=== PATIENT | female | born 1955 | race Caucasian/White ===

== ENCOUNTER → 2018-02-05 08:50 | Outpatient (CLI) | payer BC | END | disposition home or self-care (01) | LOC: D.RAD 08:50 | DX: M25.511 Pain in right shoulder (principal) ==

== ENCOUNTER 2018-03-07 07:20 | Day surgery (SDC) | payer BC ==
[2018-03-05 11:35] LABS: HEMATOCRIT 41.7 % (36.0-48.0); MCH 31.6 pg (26.0-34.0); MCHC 33.6 g/dL (31.0-37.0); MCV 94.1 fL (80.0-100.0); MEAN PLATELET VOLUME 10.7 fL (7.4-10.4); RBC 4.43 10x6/uL (4.00-5.40); RDW 12.3 % (11.5-14.5); WBC 7.2 10x3/uL (4.8-10.8)
[~2018-03-07] VITALS: Ht 165.1 cm; Wt 62.6 kg
--- NOTE | ~2018-03-07 | OP ---
PATIENT NAME: ISA LADD MEDICAL RECORD: [id number] :57 LOCATION:[facility] ADMISSION DATE: SURGEON: BLAS GRAHAM DO DATE OF OPERATION: 03/07/2018 PROCEDURE PERFORMED: Right shoulder arthroscopy with biceps tenodesis, rotator cuff repair, labral debridement, subacromial decompression, distal clavicle excision. PREOPERATIVE DIAGNOSES: Right shoulder rotator cuff tear, SLAP tear, AC joint arthritis, and subacromial impingement POSTOPERATIVE DIAGNOSES: Right shoulder rotator cuff tear, SLAP tear, AC joint arthritis, and subacromial impingement. INDICATIONS: Ms. Isa Ladd is a 62-year-old female who presented to my office with right shoulder pain. I injected to no avail. She wanted an MRI. We got an MRI with arthrogram. She had a positive David's and pain with empty can testing. Her MRI showed a SLAP tear as well as a partial thickness rotator cuff tear. I informed her we would use a patch to the partial thickness that was greater than 50%. We would take it down, repair, and then put a patch on top of that, the Regeneten patch. I informed of the risks including infection, bleeding, damage to nerve and vessels, need for further surgery. She is okay with that risk. I also informed her to do a biceps tenodesis at that time and a subacromial decompression and AC joint, I would take up the distal clavicle to open it up. She was okay with all of that, she was tired of dealing with the pain. I asked her if it was affecting her activities of daily living, she said indeed it was. She did not want to wait any longer. She said it had been affecting her for quite some time and she signed the consent. SURGEON: Blas Graham DO DESCRIPTION OF THE PROCEDURE: The patient was given a block by anesthesia in the preoperative area and taken to the operative suite, laid in the left lateral decubitus position with the right shoulder prepped and draped. She was given 900 mg of clindamycin preoperatively. Timeout was performed, everyone was in agreement of the correct side, site, patient and procedure. The procedure then began with insufflating the capsule with 60 mL of normal saline through the posterior portal. Posterior portal was then established with an 11-blade scalpel and then a trocar was entered in the shoulder joint. Once the camera was entered in, a SLAP tear was noted right away as well as the rotator cuff tear, it was greater than 50% on the articular side, which was noted and the anterior portal was then established with an 18-gauge spinal needle and 11-blade scalpel. A burner was brought in and the bicep tenotomy was done at that time as well as labral debridement. The subscapularis tendon was also inspected and had a small fraying, which was debrided and appeared to be not full-thickness tear of the subscapularis. The cartilage looked good. No chondromalacia was noted and there were no loose bodies in the inferior pouch. Then went to the subacromial space and there was quite a bit of inflammation there. The lateral portal was established with an 18-gauge spinal needle and then a burner was brought in and cleaned up the space. There was a type 2 acromion noted on the distal acromion. This was removed with a shaver and then the AC joint was then addressed. The shaver was brought in through the anterior portal and took off the distal end of the clavicle opening up the AC joint, approximately 7 mm. After this was done, more debridement of the subacromial space was done as it OPERATIVE REPORT [id number] ISA LADD was quite inflamed with a shaver. The rotator cuff was cleaned off and there was a tear on the bursal side as well, noting a full thickness tear. A spinal needle was then brought in to valentin it. Once this was marked, we opened the shoulder with the lateral pole of extending it was a 15 blade scalpel. Careful dissection was then made down to the rotator cuff tear. The bursa was removed and the tear was noted. Anchors were then placed for the medial row, 2 anchors approximately a cm apart. We used a scorpion needle to bite through the tendon with the SpeedBridge sutures and the 2 freer ends were tied down on the anterior and posterior and then the 2 FiberTapes were used, one across over on each, one anterior, one posterior and then a lateral row. One anterior and one posterior was placed over the anchors. Once the anchors were in place, the rotator cuff had a nice repair. The Regeneten graft was brought in and put over the tear and I stapled medially and then the deploying device was removed and then 2 bone brad were placed into the patch laterally. After this was completed, the site was thoroughly irrigated and then attention was drawn to the biceps tenodesis site. The incision was made on the anterior humerus. Careful dissection was made down to the where the bicep was between the pec and deltoid junction and removed through the incision. It was whipstitched and then placed into the anterior humerus through a unicortical hole using a button, it was cinched down and then tied and then a free needle was used with an extra suture through the tendon. This was tied down. Excess tendon and excess suture were then removed with scissors. The site was then irrigated as well as the other open rotator cuff site and this site was closed with 2-0 Vicryl in inverted interrupted fashion, 4-0 Monocryl ran on the skin. The rotator cuff site was closed with 2-0 Vicryl closing the deltoid fascia in a [id number] fashion and then 2-0 Vicryl and the skin in an inverted interrupted fashion, 4-0 Monocryl was then ran on the skin on that side and then 4-0 Monocryl was used in inverted interrupted fashion to close the anterior and posterior portals. Dermabond glue was placed on each of the sites. Telfa and Tegaderm were then placed on them and ABD was then placed on it. The patient was awakened and taken to recovery in stable condition. Blood loss was minimal. COMPLICATIONS: None. TRANSINT:[id number] Voice Confirmation ID: [id number] DOCUMENT ID: [id number] BLAS GRAHAM DO at 1553 CC: [id number] DICTATION DATE: 03/07/18 1201 WARP KNITTING MACHINE OPERATOR: 03/07/18 1527 [facility] 03/07/18 [place] [id number] [place] [id number]
[~2018-03-07 07:20] MED LIST: CIMETIDINE200 MG PO; PEPCID AC20 MG PO; TUMERIC PO
[2018-03-07 07:40] VITALS: BP 107/68; Ht 165.1 cm; Wt 62.6 kg
[2018-03-07] MEDS ORDERED: OXYCODONE-APAP1 T10 PO (11:46)
[2018-03-07] MEDS ORDERED: VISTARIL50 MG PO (11:47)
== END 2018-03-07 13:30 | disposition home or self-care (01) ==
LOC: D.OPS 07:20 → D.PAN 10:00 → D.OPS 10:00
PROVIDERS: Anesthesiology
DX: M75.41 Impingement syndrome of right shoulder (principal); M75.111 Incomplete rotator cuff tear or rupture of right shoulder, not specified as traumatic; S43.431A Superior glenoid labrum lesion of right shoulder, initial encounter; M13.811 Other specified arthritis, right shoulder; Z01.812 Encounter for preprocedural laboratory examination

== ENCOUNTER → 2020-05-29 08:02 | Outpatient (CLI) | payer BC ==
[2018-03-07 07:40] VITALS: BMI 23.0
[~2020-05-29 08:02] MED LIST changes: +OXYCODONE-APAP1 T10 PO; +VISTARIL50 MG PO
== END | disposition home or self-care (01) ==
LOC: D.MRI 08:02
PROVIDERS: ATTEND Nurse Practitioner Family
DX: M67.432 Ganglion, left wrist (principal)

== ENCOUNTER 2020-06-16 05:45 | Day surgery (SDC) | payer BC ==
[~2020-06-16] VITALS: Ht 162.6 cm; Wt 63.5 kg
[2020-06-16 06:12] LABS: HEMATOCRIT 42.6 % (36.0-48.0); HEMOGLOBIN 14.3 g/dL (12-16); MCH 31.5 pg (26.0-34.0); MCHC 33.6 g/dL (31.0-37.0); MCV 93.8 fL (80.0-100.0); MEAN PLATELET VOLUME 10.8 fL (7.4-10.4); RBC 4.54 10x6/uL (4.00-5.40); RDW 12.6 % (11.5-14.5); WBC 5.8 10x3/uL (4.8-10.8)
[2020-06-16 06:28] VITALS: BP 170/83; Ht 162.6 cm; Wt 63.5 kg
[2020-06-16 06:37] LABS: SARS-CoV-2 ANTIGEN NEGATIVE- SARS-COV-2 (NEGATIVE)
[2020-06-16] MEDS ORDERED: HYDROCODON-ACE1 EAC7 PO (06:59)
--- NOTE | 2020-06-16 08:21 | NUR ---
0810 ICE CAP TO LEFT HAND. 0815 COFFEE WITH CREAM SERVED.
--- NOTE | 2020-06-16 14:20 | OP ---
PATIENT NAME: ISA LADD MEDICAL RECORD: [id number] :57 LOCATION:[facility] ADMISSION DATE: SURGEON: BLAS GRAHAM DO DATE OF OPERATION: 06/16/2020 PROCEDURE PERFORMED: Left wrist first dorsal compartment release. PREOPERATIVE DIAGNOSIS: Left wrist de Quervain's tenosynovitis. POSTOPERATIVE DIAGNOSIS: Left wrist de Quervain's tenosynovitis or radial styloid tenosynovitis. INDICATIONS: Ms. Ladd is a 64-year-old female who has had left wrist pain for quite some time. She has a large soft tissue prominence over the first dorsal compartment. She had positive Hilda's test. She is tired of dealing with the pain and wants something done surgically. She is aware of the risks including infection, bleeding, damage to the radial sensory nerve, continued pain, recurrence and she signed the consent. SURGEON: Blas Graham DO DESCRIPTION OF PROCEDURE: The patient received a block by anesthesia in the preoperative area, taken to the operative suite, laid in supine position, given TIVA and a gram of Ancef. Left upper extremity was then prepped and draped in sterile fashion. Timeout was performed. Everyone was in agreement with correct side, site, patient and procedure. We then began by exsanguinating the left upper extremity with an Esmarch, tourniquet was inflated to 250 mmHg, was up for 7 minutes. I made an incision over the dorsal aspect of the first dorsal compartment, made careful dissection down to the first dorsal compartment. There was a large prominence and very thickened tendon sheath at the radial styloid and the first dorsal compartment. I released on the dorsal side and then opened up the compartment to make sure there is no accessory or other compartments of the EPL and there were not and then we released first on the volar side proximally and swung it up and to lightly secured down the tendons and tied it to the dorsal flap of the were I released the tendon sheath in a horizontal mattress fashion with 5-0 Monocryl and tied it down. I then put down the tourniquet. Quang Valentino, certified alcohol drug counselor, then closed the skin with 5-0 Monocryl in inverted fashion and placed Steri-Strips, Adaptic, 4 x 4, Kerlix and Coban lightly wrapped on the wrist. She was then awakened and taken to recovery in stable condition. BLOOD LOSS: Minimal. COMPLICATION: None. TRANSINT:[id number] Voice Confirmation ID: [id number] DOCUMENT ID: [id number] OPERATIVE REPORT [id number] ISA LADD MICHAEL D, DO at 1420 CC: [id number] DICTATION DATE: 06/16/20 0801 POWER ELECTRONICS RESEARCH ENGINEER: 06/16/20 1400 [facility] 06/16/[address] [id number]
== END 2020-06-16 08:45 | disposition home or self-care (01) ==
LOC: D.OPS 05:45
PROVIDERS: Anesthesiology; ATTEND Orthopaedic Surgery
DX: M65.4 Radial styloid tenosynovitis [de Quervain] (principal)